=== PATIENT | female | born 2000 | race Two or more races ===

== ENCOUNTER 2022-08-03 00:51 | Emergency (ER) | payer MEDICAID ==
[~2022-08-03] VITALS: Ht 165.1 cm; Wt 81.6 kg
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
--- NOTE | 2022-08-03 01:38 | NUR ---
SEEN BY DR AIKEN AT BEDSIDE
--- NOTE | 2022-08-03 01:49 | NUR ---
BROUGHT TO CT DEPT
[2022-08-03] MEDS ORDERED: IBUPROFEN 400 MG TABLET PO ONE (02:00)
[2022-08-03] MEDS ORDERED: ONDANSETRON 4 MG TAB.RAPDIS SL ONE (02:00)
[2022-08-03] MEDS ORDERED: IBUPROFEN 400 MG TABLET ONE (02:02)
[2022-08-03] MEDS ORDERED: ONDANSETRON 4 MG TAB.RAPDIS ONE (02:02)
--- NOTE | 2022-08-03 04:15 | NUR ---
Patient discharged to home in stable condition. Written and verbal after care instructions given. Patient verbalizes understanding of instruction.
[2022-08-03 04:16] VITALS: BP 141/83
== END 2022-08-03 04:17 | disposition home or self-care (01) ==
LOC: ER 00:53
DX: S00.33XA Contusion of nose, initial encounter (principal); V89.2XXA Person injured in unspecified motor-vehicle accident, traffic, initial encounter; Y93.89 Activity, other specified; Y92.89 Other specified places as the place of occurrence of the external cause; Y99.8 Other external cause status
CPT/HCPCS: 99284; 70486; Q0162